=== PATIENT | male | born 1980 | race Hispanic/Latino ===

== ENCOUNTER 2020-04-10 18:18 | Emergency (ER) | payer SELFPAY ==
[~2020-04-10] VITALS: Ht 162.6 cm; Wt 68.0 kg
[2020-04-10] MEDS ORDERED: BACTRIM DS1 TAB PO (18:51)
[2020-04-10] MEDS ORDERED: KEFLEX500 M1 PO (18:51)
[2020-04-10] MEDS ORDERED: NO HOME MEDS (18:53)
[2020-04-10 19:03] VITALS: BP 144/75
== END 2020-04-10 19:03 | disposition home or self-care (01) | DRG 603 ==
LOC: ED 18:18
DX: L02.415 Cutaneous abscess of right lower limb (principal)